=== PATIENT | male | born 1965 | race Caucasian/White ===

== ENCOUNTER 2019-02-20 05:53 | Day surgery (SDC) | payer OTHER ==
[~2019-02-20] VITALS: Ht 180.3 cm; Wt 92.5 kg
[2019-02-20] MEDS ORDERED: fentaNYL 0.05 MG/ML VIAL ONE (07:42)
[2019-02-20] MEDS ORDERED: LIDOCAINE 2% 100 MG/5 ML UJET TP ONE (07:42)
[2019-02-20] MEDS ORDERED: fentaNYL 0.05 MG/ML VIAL IVP ONE (09:25)
== END 2019-02-20 09:20 | disposition home or self-care (01) ==
LOC: MOR 05:53 → MMU 06:11 → MOR 09:20
PROVIDERS: ATTEND Internal Medicine Gastroenterology
DX: Z12.11 Encounter for screening for malignant neoplasm of colon (principal); D12.5 Benign neoplasm of sigmoid colon; Z79.899 Other long term (current) drug therapy
CPT/HCPCS: 45385; J3010